=== PATIENT | female | born 1990 ===

== ENCOUNTER 2020-01-07 14:36 | Inpatient (IN) ==
[2020-01-07] MEDS ORDERED: MEPERIDINE 50 MG/1 ML VIAL IV PRN (14:56)
[2020-01-07] MEDS ORDERED: ONDANSETRON 4 MG/2 ML VIAL IV PRN (14:56)
[2020-01-07] MEDS ORDERED: BUTORPHANOL 2 MG/ML VIAL IV PRN (14:56)
[2020-01-07] MEDS ORDERED: DINOPROSTONE VAG GEL 10 MG SYRINGE VAG ONE (14:58)
[2020-01-07 15:38] LABS: Basophils % 0.2 % (0.0-0.8); Eosinophils % 0.4 % (0.00-10.9); Hematocrit 32.8 VOL% (35.7-47.0); Hemoglobin 10.8 GM/DL (12.0-16.0); Immature Granulocytes Absolute 0.09 #; Lymphocytes # 1.8 10*3/uL (1.4-4.0); Lymphocytes % 19.8 % (21.3-54.2); Mean Corpuscular HGB Conc 32.9 GM/DL (32-36); Mean Corpuscular Volume 80.4 FL (87-102); Mean Platelet Volume 9.3 FL (9.6-12.0); Monocytes % 7.5 % (1.7-12.7); Neutrophils % 71.1 % (38.7-73.9); Platelet Count 319 T/CUMM (130-400); Red Blood Count 4.08 MC/CUMM (3.8-5.5); Red Cell Distribution Width 14.4 % (9.3-17.3); White Blood Count 9.2 T/CUMM (4-12)
[2020-01-07 15:51] LABS: Alanine Aminotransferase 14 U/L (13-56); Albumin 2.3 G/DL (3.4-5.0); Alkaline Phosphatase 157 U/L (45-117); Aspartate Amino Transferase 18 U/L (0-37); Bilirubin,Total < 0.39 MG/DL (0.2-1.0); Blood Urea Nitrogen 9 MG/DL (7-18); Calcium 8.6 MG/DL (8.5-10.1); Estimated Glom Filtration Rate 150 ML/MIN; Glucose 136 MG/DL (74-106); Osmolality,Calculated 273.8 MOS/KG (273-304); Total Protein 6.5 G/DL (6.4-8.3)
[2020-01-07] MEDS: LACTATED RINGERS 1,000 ML IV SCH (17:05)
[2020-01-08] MEDS ORDERED: OXYTOCIN/LR 20 UNIT/1,000 ML BAG IV SCH ×2 (01:00→02:00)
[2020-01-08] MEDS: LACTATED RINGERS 1,000 ML IV SCH ×3 (01:25→14:44)
[2020-01-08] MEDS ORDERED: FAMOTIDINE 20 MG/2 ML VIAL IV ONE (05:23)
[2020-01-08] MEDS ORDERED: ePHEDrine 50 MG/ML AMP IV PRN (05:23)
[2020-01-08] MEDS ORDERED: CITRIC ACID/SODIUM CITRATE 30 ML UDCUP PO ONE (05:23)
[2020-01-08] MEDS ORDERED: NALOXONE 0.4 MG/ML VIAL IV PRN (05:23)
[2020-01-08] MEDS ORDERED: fentaNYL 2 MCG/ROPIV 0.2% EPID 100 ML EPIDURAL SCH (05:30)
[2020-01-08] MEDS ORDERED: LIDOCAINE MPF 2% /EPI 20 ML VIAL ONE ×2 (14:34→18:05)
[2020-01-08] MEDS ORDERED: fentaNYL 100 MCG/2 ML VIAL ONE ×2 (14:35→18:05)
[2020-01-08 15:56] LABS: Apearance,Urine CLEAR (Clear); Bacteria,Urine Occasional /HPF (Few); Bilirubin,Urine Negative (Negative); Blood, Urine Negative (Negative); Glucose,Urine (UA) Negative (Negative); Ketones,Urine Negative (Negative); Mucus,Urine Occasional /LPF (Occasional); Nitrite,Urine Negative (Negative); Protein,Urine Negative; RBC,Urine 1 /HPF (0-4); Squamous Epithelial Cell,Urine Occasional /HPF (0-10); Urine Color Yellow (Yellow); Urine Specific Gravity 1.011 (1.001-1.035); Urine Urobilinogen < 2.0 EU/DL (0.2-1.0); WBC,Urine 2 /HPF (0-6)
[2020-01-08] MEDS ORDERED: OXYTOCIN/LR 30 UNIT/1,000 ML BAG IV ONE (16:00)
[2020-01-08] MEDS ORDERED: ceFAZolin 2,000 MG in PREMIX 1 EACH IV ONE (16:00)
[2020-01-08] MEDS ORDERED: OXYTOCIN 10 UNIT/ML VIAL IM ONE (16:10)
[2020-01-08 16:43] LABS: Basophils % 0.2 % (0.0-0.8); Eosinophils # 0.1 10*3/uL (0.0-0.87); Eosinophils % 0.4 % (0.00-10.9); Immature Granulocytes % 0.5 %; Immature Granulocytes Absolute 0.06 #; Lymphocytes # 1.8 10*3/uL (1.4-4.0); Lymphocytes % 14.8 % (21.3-54.2); Mean Corpuscular HGB Conc 32.4 GM/DL (32-36); Mean Corpuscular Volume 81.9 FL (87-102); Mean Platelet Volume 9.4 FL (9.6-12.0); Monocytes % 7.2 % (1.7-12.7); Neutrophils % 76.9 % (38.7-73.9); Platelet Count 323 T/CUMM (130-400); Red Blood Count 4.15 MC/CUMM (3.8-5.5); Red Cell Distribution Width 14.6 % (9.3-17.3); White Blood Count 12.4 T/CUMM (4-12)
[2020-01-08] MEDS ORDERED: miSOPROStoL 200 MCG TABLET ONE (17:17)
[2020-01-08] MEDS ORDERED: OXYTOCIN/LR 20 UNIT/1,000 ML BAG IV ONE ×2 (17:17→17:41)
[2020-01-08] MEDS ORDERED: TRANEXAMIC ACID 1,000 MG/10 ML VIAL ONE (17:17)
[2020-01-08] MEDS ORDERED: METHYLERGONOVINE 0.2 MG/1 ML AMP ONE (17:18)
[2020-01-08] MEDS ORDERED: CARBOPROST TROMETHAMINE 250 MCG/ML AMP IM ONE (17:18)
[2020-01-08] MEDS ORDERED: SODIUM CHLORIDE 0.9% 1,000 ML IV PRN (17:21)
[2020-01-08 17:41] LABS: Cord Arterial Blood HCO3 21.2 MMOL/L
[2020-01-08] MEDS ORDERED: RHO(D) IMMUNE GLOBULIN 300 MCG SYRINGE IM ONE (17:41)
[2020-01-08] MEDS ORDERED: ONDANSETRON 4 MG/2 ML VIAL IV PRN (17:41)
[2020-01-08] MEDS ORDERED: ACETAMINOPHEN 325 MG TABLET PO PRN (17:41)
[2020-01-08 17:44] LABS: Cord Venous Blood HCO3 22.9 MMOL/L; Cord Venous Blood PCO2 49.2 MMHG; Cord Venous Blood PO2 37.6
[2020-01-08] MEDS ORDERED: LACTATED RINGERS 1,000 ML IV SCH (18:00)
[2020-01-08] MEDS ORDERED: PHENYLEPHRINE 1 MG/10 ML SYRINGE IV ONE (18:05)
[2020-01-08] MEDS ORDERED: propofoL 200 MG/20 ML VIAL IV ONE (18:05)
[2020-01-08] MEDS ORDERED: SUCCINYLCHOLINE 200 MG/10 ML VIAL ONE (18:06)
[2020-01-08] MEDS ORDERED: SEVOFLURANE 1 UNIT/15 MINUTE INH ONE (18:06)
[2020-01-08] MEDS ORDERED: SODIUM BICARBONATE 10 MEQ/10 ML SYRINGE IV ONE (18:11)
[2020-01-08 21:29] LABS: Hematocrit 31.5 VOL% (35.7-47.0)
[2020-01-08] MEDS: IBUPROFEN 800 MG TABLET PO PRN (22:05)
[2020-01-08] MEDS: ceFAZolin 1,000 MG in SYRINGE 1 EACH IV SCH (23:55)
[2020-01-09] MEDS: DOCUSATE SODIUM 100 MG CAPSULE PO SCH ×3 (01:23→22:27)
[2020-01-09 06:39] LABS: Basophils % 0.2 % (0.0-0.8); Eosinophils # 0.1 10*3/uL (0.0-0.87); Eosinophils % 0.4 % (0.00-10.9); Hematocrit 25.5 VOL% (35.7-47.0); Hemoglobin 8.5 GM/DL (12.0-16.0); Immature Granulocytes % 0.9 %; Immature Granulocytes Absolute 0.11 #; Lymphocytes % 16.6 % (21.3-54.2); Mean Corpuscular HGB Conc 33.3 GM/DL (32-36); Mean Corpuscular Volume 79.2 FL (87-102); Mean Platelet Volume 9.1 FL (9.6-12.0); Monocytes % 8.3 % (1.7-12.7); Neutrophils % 73.6 % (38.7-73.9); Platelet Count 243 T/CUMM (130-400); Red Blood Count 3.22 MC/CUMM (3.8-5.5); Red Cell Distribution Width 16.3 % (9.3-17.3); White Blood Count 12.2 T/CUMM (4-12)
[2020-01-09] MEDS: IBUPROFEN 800 MG TABLET PO PRN ×2 (09:24→22:28)
[2020-01-09] MEDS: MULTIVITAMIN (PRENATAL) TABLET PO SCH (09:26)
[2020-01-09] MEDS: METOCLOPRAMIDE 10 MG TABLET PO SCH ×3 (09:27→22:27)
[2020-01-09] MEDS: MAGNESIUM HYDROXIDE SUSP 30 ML UDCUP PO PRN ×2 (09:27→22:27)
[2020-01-09] MEDS: SIMETHICONE CHEW 80 MG TABLET PO PRN (09:27)
[2020-01-09] MEDS: ceFAZolin 1,000 MG in SYRINGE 1 EACH IV SCH (11:05)
[2020-01-09] MEDS: FERROUS SULFATE 325 MG TABLET PO SCH (22:27)
[2020-01-10] MEDS: METOCLOPRAMIDE 10 MG TABLET PO SCH ×2 (03:54→13:12)
[2020-01-10] MEDS: SIMETHICONE CHEW 80 MG TABLET PO PRN (08:06)
[2020-01-10] MEDS: MULTIVITAMIN (PRENATAL) TABLET PO SCH (08:06)
[2020-01-10] MEDS: DOCUSATE SODIUM 100 MG CAPSULE PO SCH (08:06)
[2020-01-10] MEDS: IBUPROFEN 800 MG TABLET PO PRN (08:06)
[2020-01-10] MEDS: FERROUS SULFATE 325 MG TABLET PO SCH (08:06)
[2020-01-10 11:21] VITALS: BP 111/64
[2020-01-10] MEDS ORDERED: MEASLES/MUMPS/RUBELLA VACCINE 0.5 ML VIAL SUBCUT ONE (14:08)
[2020-01-10] MEDS ORDERED: DIPH/TET/ACEL PERT BOOSTER VACCINE 0.5 ML VIAL IM ONE (14:08)
== END 2020-01-10 15:10 | disposition home or self-care (01) | DRG 788 ==
LOC: N.LDOUT 14:36 → N.LD 14:40 → N.OB 01-08 21:25
PROVIDERS: ADMIT Obstetrics & Gynecology; ATTEND Obstetrics & Gynecology
PROC: LDCSECT (ICD-10-PCS; 2020-01-08 16:30)

== ENCOUNTER 2021-05-18 10:54 | Inpatient (IN) ==
[2021-05-18] MEDS ORDERED: CITRIC ACID/SODIUM CITRATE 30 ML UDCUP PO ONE (12:19)
[2021-05-18] MEDS ORDERED: ceFAZolin 3,000 MG in SYRINGE 1 EACH IV ONE (12:19)
[2021-05-18] MEDS ORDERED: FAMOTIDINE 20 MG/2 ML VIAL IV ONE (12:19)
[2021-05-18] MEDS ORDERED: LACTATED RINGERS 1,000 ML IV SCH ×2 (12:30→16:30)
[2021-05-18 12:50] LABS: Basophils % 0.2 % (0.0-0.8); Eosinophils % 0.5 % (0.00-10.9); Hematocrit 36.9 VOL% (35.7-47.0); Hemoglobin 11.8 GM/DL (12.0-16.0); Immature Granulocytes % 0.5 %; Immature Granulocytes Absolute 0.04 #; Lymphocytes # 1.6 10*3/uL (1.4-4.0); Lymphocytes % 19.6 % (21.3-54.2); Mean Corpuscular Volume 83.3 FL (87-102); Mean Platelet Volume 10.3 FL (9.6-12.0); Monocytes % 7.1 % (1.7-12.7); Neutrophils % 72.1 % (38.7-73.9); Platelet Count 258 T/CUMM (130-400); Red Blood Count 4.43 MC/CUMM (3.8-5.5); White Blood Count 8.2 T/CUMM (4-12)
[2021-05-18] MEDS ORDERED: OXYTOCIN/LR 30 UNIT/1,000 ML BAG IV ONE ×2 (12:53→16:01)
[2021-05-18 13:10] LABS: Albumin 2.5 G/DL (3.4-5.0); Bilirubin,Total 0.4 MG/DL (0.20-1.00); Calcium 8.5 MG/DL (8.5-10.1); Osmolality,Calculated 271.7 MOS/KG (273-304); Potassium 3.8 MMOL/L (3.5-5.1); Total Protein 6.8 G/DL (6.4-8.2)
[2021-05-18] MEDS ORDERED: OXYTOCIN 10 UNIT/ML VIAL IM ONE (13:30)
[2021-05-18] MEDS ORDERED: BUPIVACAINE SPINAL 0.75% 2 ML AMP SPINAL ONE (14:10)
[2021-05-18] MEDS ORDERED: miSOPROStoL 200 MCG TABLET ONE (15:03)
[2021-05-18] MEDS ORDERED: METHYLERGONOVINE 0.2 MG/1 ML AMP ONE (15:04)
[2021-05-18] MEDS ORDERED: CARBOPROST TROMETHAMINE 250 MCG/ML AMP IM ONE (15:04)
[2021-05-18] MEDS ORDERED: ePHEDrine 50 MG/ML VIAL ONE (15:16)
[2021-05-18] MEDS ORDERED: LACTATED RINGERS 1,000 ML IV ONE (15:33)
[2021-05-18] MEDS ORDERED: ONDANSETRON 4 MG/2 ML VIAL ONE (15:45)
[2021-05-18] MEDS ORDERED: METHYLERGONOVINE 0.2 MG/1 ML AMP IM ONE (15:45)
[2021-05-18] MEDS ORDERED: ACETAMINOPHEN INJ 1,000 MG/100 ML VIAL IV ONE (15:48)
[2021-05-18] MEDS ORDERED: KETOROLAC 30 MG/1 ML VIAL ONE (15:50)
[2021-05-18] MEDS ORDERED: ACETAMINOPHEN 500 MG TABLET PO PRN ×2 (15:56→22:00)
[2021-05-18] MEDS ORDERED: PHENYLEPHRINE 1 MG/10 ML SYRINGE IV ONE (16:00)
[2021-05-18 16:05] LABS: Bilirubin,Urine Negative (Negative); Blood, Urine Negative (Negative); Glucose,Urine (UA) Negative (Negative); Ketones,Urine 20 mg/dL (Negative); Mucus,Urine Occasional /LPF (Occasional); Nitrite,Urine Negative (Negative); Protein,Urine Negative; RBC,Urine <1 /HPF (0-4); Squamous Epithelial Cell,Urine Occasional /HPF (0-10); Urine Appearance CLEAR (Clear); Urine Color Yellow (Yellow); Urine Specific Gravity 1.018 (1.001-1.035); Urine Urobilinogen < 2.0 EU/DL (0.2-1.0)
[2021-05-18 16:12] LABS: Cord Arterial Blood HCO3 25.5 MMOL/L
[2021-05-18 16:15] LABS: Cord Venous Blood HCO3 22.7 MMOL/L; Cord Venous Blood PCO2 41.8 MMHG; Cord Venous Blood PO2 37.3 MMHG
[2021-05-18] MEDS ORDERED: MAGNESIUM HYDROXIDE SUSP 30 ML UDCUP PO PRN (16:16)
[2021-05-18] MEDS ORDERED: SIMETHICONE CHEW 80 MG TABLET PO PRN (16:16)
[2021-05-18] MEDS ORDERED: IBUPROFEN 800 MG TABLET PO PRN (16:16)
[2021-05-18] MEDS ORDERED: OXYTOCIN/LR 20 UNIT/1,000 ML BAG IV ONE (16:16)
[2021-05-18] MEDS ORDERED: RHO(D) IMMUNE GLOBULIN 300 MCG SYRINGE IM ONE (16:16)
[2021-05-18] MEDS ORDERED: ACETAMINOPHEN 325 MG TABLET PO PRN (16:16)
[2021-05-18] MEDS ORDERED: ONDANSETRON 4 MG/2 ML VIAL IV PRN (16:16)
[2021-05-18] MEDS ORDERED: OXYTOCIN 10 UNIT/ML VIAL IV ONE (16:50)
[2021-05-18] MEDS ORDERED: SODIUM CHLORIDE 0.9% 1,000 ML IV PRN (16:50)
[2021-05-18] MEDS: DOCUSATE SODIUM 100 MG CAPSULE PO SCH (21:37)
[2021-05-18] MEDS ORDERED: KETOROLAC 30 MG/1 ML VIAL IV SCH (22:00)
[2021-05-19 00:43] LABS: Basophils % 0.1 % (0.0-0.8); Hemoglobin 10.1 GM/DL (12.0-16.0); Immature Granulocytes % 1.6 %; Immature Granulocytes Absolute 0.24 #; Lymphocytes # 1.6 10*3/uL (1.4-4.0); Lymphocytes % 10.8 % (21.3-54.2); Mean Corpuscular HGB Conc 32.6 GM/DL (32-36); Mean Corpuscular Volume 84.2 FL (87-102); Mean Platelet Volume 10.1 FL (9.6-12.0); Monocytes % 5.7 % (1.7-12.7); Neutrophils % 81.8 % (38.7-73.9); Platelet Count 216 T/CUMM (130-400); Red Blood Count 3.68 MC/CUMM (3.8-5.5); Red Cell Distribution Width 15.1 % (9.3-17.3); White Blood Count 14.8 T/CUMM (4-12)
[2021-05-19] MEDS ORDERED: GLUCAGON 1 MG VIAL IM PRN (02:36)
[2021-05-19] MEDS ORDERED: DEXTROSE 50% 25 GM/50 ML VIAL IV PRN (02:36)
[2021-05-19] MEDS: KETOROLAC 30 MG/1 ML VIAL IV SCH ×2 (04:04→09:53)
[2021-05-19 06:00] LABS: Basophils % 0.2 % (0.0-0.8); Eosinophils % 0.1 % (0.00-10.9); Hematocrit 28.6 VOL% (35.7-47.0); Hemoglobin 9.1 GM/DL (12.0-16.0); Immature Granulocytes % 0.6 %; Immature Granulocytes Absolute 0.07 #; Lymphocytes % 16.6 % (21.3-54.2); Mean Corpuscular HGB Conc 31.8 GM/DL (32-36); Mean Corpuscular Volume 85.1 FL (87-102); Mean Platelet Volume 10.1 FL (9.6-12.0); Monocytes % 9.3 % (1.7-12.7); Neutrophils % 73.2 % (38.7-73.9); Platelet Count 183 T/CUMM (130-400); Red Blood Count 3.36 MC/CUMM (3.8-5.5); Red Cell Distribution Width 15.2 % (9.3-17.3); White Blood Count 12.3 T/CUMM (4-12)
[2021-05-19] MEDS: DOCUSATE SODIUM 100 MG CAPSULE PO SCH ×2 (08:39→20:24)
[2021-05-19] MEDS: MULTIVITAMIN (PRENATAL) TABLET PO SCH (08:39)
[2021-05-19] MEDS: METOCLOPRAMIDE 10 MG TABLET PO SCH ×2 (08:39→16:35)
[2021-05-19] MEDS ORDERED: BISACODYL 10 MG SUPP RECTAL PRN (20:16)
[2021-05-19] MEDS: IBUPROFEN 800 MG TABLET PO PRN (22:20)
[2021-05-20] MEDS: IBUPROFEN 800 MG TABLET PO PRN (04:06)
[2021-05-20] MEDS: MULTIVITAMIN (PRENATAL) TABLET PO SCH (08:04)
[2021-05-20] MEDS: DOCUSATE SODIUM 100 MG CAPSULE PO SCH (08:04)
[2021-05-20 08:20] VITALS: BP 113/54
== END 2021-05-20 13:20 | disposition home or self-care (01) | DRG 788 ==
LOC: N.LD → INTOOBSV 10:54 → N.LD 10:54 → N.OB 05-19 01:44
PROVIDERS: ADMIT Obstetrics & Gynecology; ATTEND Obstetrics & Gynecology
PROC: LDCSECT (ICD-10-PCS; 2021-05-18 12:45)